=== PATIENT | female | born 1940 | race Caucasian/White ===

== ENCOUNTER 2016-06-25 11:32 | Emergency (ER) | payer MEDICARE ==
[2016-06-25] MEDS ORDERED: ONDANSETRON 4 MG/2ML 2 ML VIAL ONE (12:57)
[2016-06-25] MEDS ORDERED: HYDROMORPHONE HCL 1 MG/ML SYRINGE ONE (12:58)
--- NOTE | 2016-06-25 14:25 | RAD ---
CHEST - 2 VIEWS COMPARISON: None. HISTORY: Right chest pain from a fall. FINDINGS: Views: Frontal and lateral chest Lungs: Normal Heart and vessels: Normal Trachea and bronchi: Normal Mediastinum and violeta: Normal Costophrenic sulci: Normal Chest wall and bones: No fracture. Port-A-Cath on the right. Calcified capsules of bilateral breast implants. Upper abdomen: Surgical clips in the right upper quadrant. IMPRESSION: 1. No acute finding. No fracture. No pneumothorax.
== END 2016-06-25 14:28 | disposition home or self-care (01) ==
LOC: ED 11:32
DX: S09.90XA Unspecified injury of head, initial encounter (principal); S29.9XXA Unspecified injury of thorax, initial encounter; J44.9 Chronic obstructive pulmonary disease, unspecified; F17.210 Nicotine dependence, cigarettes, uncomplicated; W01.0XXA Fall on same level from slipping, tripping and stumbling without subsequent striking against object, initial encounter; Y92.9 Unspecified place or not applicable